=== PATIENT | female | born 1995 | race Hispanic/Latino ===

== ENCOUNTER 2017-02-26 19:32 | Emergency (ER) | payer OTHER, SELFPAY ==
[2017-02-26] MEDS ORDERED: Diazepam 5 MG TAB ONE (21:16)
[2017-02-26] MEDS ORDERED: Ketorolac Tromethamine 60 MG/2 ML VIAL ONE (21:16)
== END 2017-02-26 21:31 | disposition home or self-care (01) ==
LOC: ERS 19:32
DX: M54.5 Low back pain (principal)
CPT/HCPCS: 96372; J1885

== ENCOUNTER 2022-09-26 15:23 | Outpatient (CLI) | payer BC | END 2022-09-26 15:24 | disposition home or self-care (01) | LOC: RAD 15:23 | PROVIDERS: ATTEND Family Medicine | DX: S99.911A Unspecified injury of right ankle, initial encounter (principal) ==